=== PATIENT | male | born 2000 | race Caucasian/White ===

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

== ENCOUNTER 2019-02-22 12:28 | Emergency (ER) | payer BC, MEDICAID, OTHER ==
[2019-02-22 14:10] LABS: ABSOLUTE NEUTROPHIL COUNT 6.64; BASO % 0.4 % (0-6); EOS % 1.4 % (0-6); GRAN % 71.3 % (47-80); HEMATOCRIT 45.6 % (42.0-52.0); HEMOGLOBIN 15.5 gm/dl (14.0-18.0); LYMPH % 19.4 % (16-45); MEAN CELL VOLUME 82.8 fl (81-97); MEAN CORPUSCULAR HEMOGLOBIN 28.1 pg (27-33); MEAN PLATELET VOLUME 10.5 fl (7.4-10.4); MONO % 7.5 % (0-9); PLATELET COUNT 228 K/uL (130-400); RED BLOOD COUNT 5.51 M/uL (4.40-5.70); RED CELL DISTRIBUTION WIDTH 12.7 % (11.5-14.5); WHITE BLOOD COUNT W/O DIFF 9.3 K/uL (4.2-12.2)
[2019-02-22 14:11] LABS: URINE APPEARANCE CLEAR; URINE BILIRUBIN NEGATIVE (NEGATIVE); URINE BLOOD NEGATIVE (NEGATIVE); URINE COLOR YELLOW; URINE GLUCOSE (UA) NEGATIVE (NEGATIVE); URINE KETONE NEGATIVE (NEGATIVE); URINE LEUKOCYTE ESTERASE NEGATIVE (NEGATIVE); URINE NITRITE NEGATIVE (NEGATIVE); URINE PROTEIN NEGATIVE (NEGATIVE); URINE UROBILINOGEN 0.2 E.U./dL (0.20 - 1.00)
[2019-02-22 14:19] LABS: BLOOD UREA NITROGEN 8 mg/dL (6-20); CREATININE 0.8 mg/dL (0.7-1.2); EST GLOMERULAR FILTRATION RATE > 60 mL/min
[2019-02-22 14:22] LABS: GLUCOSE,RANDOM 103 mg/dL (74-109)
[2019-02-22 14:24] LABS: ALBUMIN 4.8 g/dL (4.0-5.0); ALKALINE PHOSPHATASE 41 U/L (40-129); ALT/SGPT 11 U/L (<41); AST/SGOT 15 U/L (10.0-50.0); BILIRUBIN,DIRECT 0.2 mg/dL (0-0.3)
--- NOTE | 2019-02-22 14:57 | Emergency Department Record ---
History of Present Illness - General Chief complaint: Nausea, Vomiting, Diarrhea Stated complaint: NAUSEA Time Seen by Provider: 02/22/19 13:40 Source: Patient Mode of Arrival: Ambulatory Limitations: No limitations - History of Present Illness Initial comments: pt has had nausea for 5 days but no vomiting. then he developed ruq ap last night that is constant. hes also had diarrhea. he is here on leave from [place]. MD complaint: Abdominal pain, Diarrhea, Nausea Onset/Timin -: Week(s) Description of Diarrhea: Water, Other Associated Abdominal Pain: Yes Location: RUQ Severity scale (1-10): 8 Quality: Cramping, Sharp Improves with: None Worsens with: None Associated Symptoms: Nausea/vomiting - Related Data Previous Rx's Medication Instructions Recorded Ondansetron [Zofran Odt] 4 mg PO Q8H #7 tab.rapdis 02/22/19 Allergies Allergy/AdvReac Type Severity Reaction Status Date / Time No Known Drug Allergies Allergy Verified 02/22/19 13:29 Travel Screening - Travel/Exposure Within Last 30 Days Have you traveled within the last 30 days?: Yes Location Detail:: [place] - Travel/Exposure Within Last Year Have you traveled outside the [place] in the last year?: Yes Location Detail:: [facility] - Additonal Travel Details Have you been exposed to anyone with a communicable illness?: No - Travel Symptoms Symptom Screening: None Review of Systems Reviewed: No additional complaints except as noted below Constitutional: Reports: As per HPI. Denies: Chills, Fever, Malaise, Night sweats, Weakness, Weight change Eyes: Reports: As per HPI. Denies: Eye discharge, Eye pain, Photophobia, Vision change ENT: Reports: As per HPI. Denies: Congestion, Dental pain, Ear pain, Epistaxis, Hearing loss, Throat pain Respiratory: Reports: As per HPI. Denies: Cough, Dyspnea, Hemoptysis, Stridor, Wheezes Cardiovascular: Reports: As per HPI. Denies: Arrhythmia, Chest pain, Dyspnea on exertion, Edema, Murmurs, Orthopnea, Palpitations, Paroxysmal nocturnal dyspnea, Rheumatic Fever, Syncope Endocrine: Reports: As per HPI. Denies: Fatigue, Heat or cold intolerance, Polydipsia, Polyuria Gastrointestinal: Reports: As per HPI, Abdominal pain, Diarrhea, Nausea. Denies: Constipation, Hematemesis, Hematochezia, Melena, Vomiting Genitourinary: Reports: As per HPI. Denies: Dysuria, Frequency, Hematuria, Incontinence, Retention, Testicular pain, Testicular mass, Urgency Musculoskeletal: Reports: As per HPI. Denies: Arthralgia, Back pain, Gout, Joint swelling, Myalgia, Neck pain Skin: Reports: As per HPI. Denies: Bruising, Change in color, Change in hair/nails, Lesions, Pruritus, Rash Neurological: Reports: As per HPI. Denies: Abnormal gait, Confusion, Headache, Numbness, Paresthesias, Seizure, Tingling, Tremors, Vertigo, Weakness Psychiatric: Reports: As per HPI. Denies: Anxiety, Auditory hallucinations, Depression, Homicidal thoughts, Suicidal thoughts, Visual hallucinations Hematological/Lymphatic: Reports: As per HPI. Denies: Anemia, Blood Clots, Easy bleeding, Easy bruising, Swollen glands Past Medical History - SOCIAL HISTORY Smoking Status: Never smoker Alcohol Use: None Drug Use: None - RESPIRATORY Hx Respiratory Disorders: Yes Hx Asthma: Yes - CARDIOVASCULAR Hx Cardio Disorders: No - NEURO Hx Neuro Disorders: No - GI Hx GI Disorders: Yes Hx Reflux: Yes - Hx Genitourinary Disorders: No - ENDOCRINE Hx Endocrine Disorders: No Hx Diabetes: No Hx Thyroid Disease: No - MUSCULOSKELETAL Hx Musculoskeletal Disorders: No - PSYCH Hx Psych Problems: No - HEMATOLOGY/ONCOLOGY Hx Hematology/Oncology Disorders: No Family Medical History Any Significant Family History?: No Hx Cancer: Grandparents Hx Depression: Mother Hx Diabetes: Grandparents Hx Heart Disease: Grandparents Hx HTN: Grandparents Physical Exam - General General Appearance: Alert, Oriented x3, Cooperative, Mild distress - Head Head exam: Normal inspection - Eye Eye exam: Normal appearance, PERRL, EOMI Pupils: Normal accommodation - ENT ENT exam: Normal exam, Mucous membranes moist, Normal external ear exam, Normal orophraynx Ear exam: Normal external inspection. negative: External canal tenderness Nasal Exam: Normal inspection. negative: Discharge, Sinus tenderness Mouth exam: Normal external inspection, Tongue normal Teeth exam: Normal inspection. negative: Dental caries Throat exam: Normal inspection. negative: Tonsillar erythema, Tonsillar exudate - Neck Neck exam: Normal inspection, Full ROM. negative: Tenderness - Respiratory Respiratory exam: Normal lung sounds bilaterally. negative: Respiratory distress - Cardiovascular Cardiovascular Exam: Regular rate, Normal rhythm, Normal heart sounds - GI/Abdominal GI/Abdominal exam: Soft, Normal bowel sounds, Tenderness - Rectal Rectal exam: Deferred - exam: Deferred - Extremities Extremities exam: Normal inspection, Full ROM, Normal capillary refill. negative: Tenderness - Back Back exam: Reports: Normal inspection, Full ROM. Denies: Muscle spasm, Rash noted, Tenderness - Neurological Neurological exam: Alert, CN II-XII intact, Normal gait, Oriented X3 - Psychiatric Psychiatric exam: Normal affect, Normal mood - Skin Skin exam: Dry, Intact, Normal color, Warm Course Vital Signs 02/22/19 02/22/19 13:08 13:14 Temperature 97.9 F 98.1 F Pulse Rate 70 Pulse Rate [ 68 Pulse Ox Probe] Respiratory 16 18 Rate Blood Pressure 146/84 Blood Pressure 146/84 [Left Arm] Pulse Ox 99 99 - Reevaluation(s) Reevaluation #1: 02/22/19 17:56 pt feels better. nausea gone Medical Decision Making - Lab Data Result diagrams: 02/22/19 13:57 02/22/19 13:57 Lab Results 02/22/19 02/22/19 02/22/19 Range/Units 13:57 13:57 13:57 WBC 9.3 (4.2-12.2) K/uL RBC 5.51 (4.40-5.70) M/uL Hgb 15.5 (14.0-18.0) gm/dl Hct 45.6 (42.0-52.0) % MCV 82.8 (81-97) fl MCH 28.1 (27-33) pg MCHC 34.0 (32-36) g/dl RDW 12.7 (11.5-14.5) % Plt Count 228 (130-400) K/uL MPV 10.5 H (7.4-10.4) fl Gran % 71.3 (47-80) % Lymphocytes % 19.4 (16-45) % Monocytes % 7.5 (0-9) % Eosinophils % 1.4 (0-6) % Basophils % 0.4 (0-6) % Absolute Neutrophils 6.64 Sodium 140 (136-145) mmol/L Potassium 4.2 (3.4-4.5) mmol/L Chloride 102 (98-107) mmol/L Carbon Dioxide 27.0 (22-29) mmol/L Anion Gap 11.0 (7-16) BUN 8 (6-20) mg/dL Creatinine 0.8 (0.7-1.2) mg/dL Estimated GFR > 60 mL/min Random Glucose 103 (74-109) mg/dL Calcium 10.1 H (8.6-10.0) mg/dL Total Bilirubin 2.50 H (0.2-1.0) mg/dL Direct Bilirubin 0.2 (0-0.3) mg/dL AST 15 (10.0-50.0) U/L ALT 11 (<41) U/L Alkaline Phosphatase 41 (40-129) U/L Total Protein 7.0 (6.6-8.7) g/dL Albumin 4.8 (4.0-5.0) g/dL Urine Color Yellow Urine Appearance Clear Urine pH 8.0 (5.0-8.0) Ur Specific [place]urchard 1.010 (1.002-1.030) Urine Protein Negative (NEGATIVE) Urine Glucose (UA) Negative (NEGATIVE) Urine Ketones Negative (NEGATIVE) Urine Blood Negative (NEGATIVE) Urine Nitrite Negative (NEGATIVE) Urine Bilirubin Negative (NEGATIVE) Urine Urobilinogen 0.2 (0.20 - 1.00) E.U./dL Ur Leukocyte Esterase Negative (NEGATIVE) Disposition Disposition: Discharge Clinical Impression: RUQ abdominal pain, Elevated bilirubin Disposition: Home, Self-Care Condition: (1) Good Instructions: Abdominal Pain (ED), Acute Nausea and Vomiting (ED) Additional Instructions: follow up with family doctor. if symptoms continue get a HIDA scan of gallbladder. low fat diet. return sooner if worse. have bilirubin rechecked next week. Prescriptions: Ondansetron [Zofran Odt] 4 mg PO Q8H #7 tab.rapdis Forms: Patient Portal Access Quality - Quality Measures Quality Measures: N/A - Blood Pressure Screening Does Patient Have Any of the Following: No Blood Pressure Classification: Pre-Hypertensive BP Reading Systolic Measurement: 146 Diastolic Measurement: 84 Screening for High Blood Pressure: < Pre-Hypertensive BP, F/U Documented > [G8950] Pre-Hypertensive Follow-up Interventions: Follow-up with rescreen every year.
--- NOTE | 2019-02-22 17:09 | ULTRASOUND REPORT ---
EXAMINATION: Complete Abdomen Ultrasound EXAM DATE: 02/22/2019 3:19 PM TECHNIQUE: Complete ultrasound of the abdomen was performed. INDICATION: ruq pain COMPARISON: None FINDINGS: Liver: The liver is normal size and echogenicity. Gallbladder: Nondistended without gallstones wall thickening or pericholecystic fluid. Sonographic M urphy sign is negative. Nonmobile 4 mm polyp noted. Common Bile Duct: The common duct measures 3.0 mm. There is no intrahepatic or extrahepatic bile du ct dilatation. Pancreas: The head and body of the pancreas are normal. The tail is obscured by bowel gas. Spleen: The spleen size and echogenicity is normal. Kidneys: There is no hydronephrosis. The size and echogenicity of the kidneys is normal. Right kidn ey measures 11.6 x 4.5 x 5.8 cm and left kidney measures 11.4 x 5.2 x 6.0 cm. Abdominal Aorta: There is no abdominal aortic aneurysm. Inferior Vena Cava: The intrahepatic IVC is normal. Other Findings: No ascites. Vascular imaging: Not performed. IMPRESSION: 1. Tiny gallbladder polyp of no clinical significance. Otherwise unremarkable abdominal ultrasound. The gallbladder is normal. No biliary dilatation. Dictated by: Mazin Roman MD on 02/22/2019 5:05 PM. .
== END 2019-02-22 18:10 | disposition home or self-care (01) ==
LOC: ER 12:28
DX: R10.11 Right upper quadrant pain (principal); E80.7 Disorder of bilirubin metabolism, unspecified; R11.2 Nausea with vomiting, unspecified; R19.7 Diarrhea, unspecified
CPT/HCPCS: 76700; 80048; 80076; 81003; 85025; 99284